=== PATIENT | male | born 1975 | race African-American/Black ===

== ENCOUNTER 2017-04-24 19:38 | Emergency (ER) | payer OTHER ==
[~2017-04-24] VITALS: Ht 185.4 cm; Wt 81.6 kg
[2017-04-24 21:00] VITALS: BP 112/64
[2017-04-24] MEDS ORDERED: Oxymetazoline 0.05% Na Spray 30ml NASAL ONE (21:15)
[2017-04-24] MEDS ORDERED: Azithromycin 250mg tab ORAL ONE (21:15)
--- NOTE | 2017-04-24 21:55 | Emergency Room Report ---
History of Present Illness General Chief Complaint: General Complaint Source: Patient Present Illness HPI The patient presents with congestion, ear pressure and change in hearing for for 6 months. He was seen a week ago for nausea vomiting and diarrhea at [facility] but didn't address this problem with them. They did labs which they did not discuss with him (he believe they were normal). He received IV treatment and then they discharged him. He denies any fevers at this time. The drainage is clear from his nose. He occasionally smokes and uses THC. Denies SI or HI. No specific headache, change in vision. He states he put a flame next to his ear to "see if the was would burn, like Ravi." It did not. He finds his voice is louder to him than to people he is speaking with. The vomiting and diarrhea is resolved. Denies risk for HIV or other drugs or alcohol. No rashes or joint pain. Allergies: Coded Allergies: No Known Allergies (Unverified , 04/24/17) Patient History Past Medical History: see triage record Social History: Reports: smoking - occasional, drug use - thc, Denies: alcohol use Social History Narrative homeless for 1 year - sister in town and assists him - other family distant Reviewed Nursing Documentation: PMH: Agreed, PSxH: Agreed Nursing Documentation-PMH Past Medical History: No Stated History Review of Systems All Other Systems: negative except mentioned in HPI Physical Exam Vital Signs Date Time Temp Pulse Resp B/P (MAP) Pulse Ox O2 Delivery O2 Flow Rate FiO2 04/24/17 19:54 98.1 89 16 112/64 99 Room Air Sp02 EP Interpretation: reviewed, normal General Appearance: well appearing, no apparent distress, alert, GCS 15 Head: normocephalic, atraumatic Eyes: bilateral eye normal inspection, bilateral eye PERRL ENT: normal pharynx, moist mucus membranes, other - TM L opacified and buldge, R with cerumen, nasal congestion Neck: full range of motion, supple Respiratory: no respiratory distress, speaking full sentences Cardiovascular #1: regular rate, rhythm Cardiovascular #2: 2+ radial (L) Gastrointestinal: normal inspection, normal bowel sounds, scaphoid Musculoskeletal: back normal, digits/nails normal, gait/station normal, normal range of motion Neurologic: alert, oriented x3, normal gait, grossly normal Psychiatric: mood/affect normal - slightly depressed, no suicidal/homicidal ideation Skin: no rash Medical Decision Making Diagnostic Impression: Primary Impression: Otitis media Qualified Codes: H66.006 - Acute suppurative otitis media without spontaneous rupture of ear drum, recurrent, bilateral Additional Impression: Chronic sinusitis Qualified Codes: J32.9 - Chronic sinusitis, unspecified ER Course Patient presents with several months of sinus congestion and now with bilateral ear pain with decreased hearing. DDx: cerumen impaction, otitis media, serous otitis, allergic rhinitis amongst others. No fever now so doubt influenza ( also chronicity). Acute process on top of chronic. Patient somewhat circumscribe about social situation. Antibiotics and decongestants/steroids indicated. Patient started on medication. States no change. As chronic process, may take time for improvement. We requested review of medical as he was uncertain how his meeting with clinical social work aide ended up. Patient stable for outpatient observation and treatment. Last Vital Signs Date Time Temp Pulse Resp B/P (MAP) Pulse Ox O2 Delivery O2 Flow Rate FiO2 04/24/17 22:10 98.1 89 16 112/64 99 Room Air Status: improved Disposition: HOME, SELF-CARE Condition: Improved Scripts Fluticasone Propionate (Flonase Allergy Relief) 9.9 Ml Himrod.susp 1 SPR NS BID Y for sinusitis, #1 UNIT Prov: Roberth Church M.D. 04/24/17 Chlorpheniramine Maleate (CHLOR-TRIMETON) 4 Mg Tablet 4 MG PO Q6HR Y for congestion, #14 TAB Prov: Roberth Church M.D. 04/24/17 Azithromycin* (ZITHROMAX*) 250 Mg Tablet 250 MG ORAL DAILY, #4 TAB Prov: Roberth Church M.D. 04/24/17 Referrals: NOT CHOSEN KYLE/,REFERRING (PCP) Roberth Church M.D. Apr 24, 2017 21:55
[2017-04-24] MEDS ORDERED: CHLOR-TRIMETON4 MG PO (22:01)
[2017-04-24] MEDS ORDERED: AZITHROMYCIN250 MG ORAL (22:01)
[2017-04-24] MEDS ORDERED: FLONASE ALLERG9.9 ML NS (22:01)
[2017-04-24 22:10] VITALS: BP 112/64
== END 2017-04-24 22:10 | disposition home or self-care (01) ==
LOC: EDSEX 19:38 → EMR 21:47
DX: H66.93 Otitis media, unspecified, bilateral (principal); J32.9 Chronic sinusitis, unspecified; F17.200 Nicotine dependence, unspecified, uncomplicated
CPT/HCPCS: 99282